=== PATIENT | female | born 1960 | race Two or more races ===

== ENCOUNTER 2021-02-19 10:40 | Emergency (ER) | payer OTHER ==
[~2021-02-19] VITALS: Ht 152.4 cm; Wt 81.6 kg
[2021-02-19 11:51] VITALS: BP 171/68
[2021-02-19] MEDS ORDERED: HYDROcodone-ACET 5/325MG TAB PO ONE (12:00)
[2021-02-19] MEDS ORDERED: ONDANSETRON ODT 4 MG TAB PO ONE (12:00)
== END 2021-02-19 14:04 | disposition home or self-care (01) ==
LOC: ER 10:40
DX: S39.012A Strain of muscle, fascia and tendon of lower back, initial encounter (principal); M54.41 Lumbago with sciatica, right side; I10 Essential (primary) hypertension; E11.9 Type 2 diabetes mellitus without complications; Z90.49 Acquired absence of other specified parts of digestive tract; X58.XXXA Exposure to other specified factors, initial encounter; Y93.89 Activity, other specified; Y92.89 Other specified places as the place of occurrence of the external cause; Y99.8 Other external cause status
CPT/HCPCS: 72100; 93005; 99283; Q0162

== ENCOUNTER → 2021-08-23 | Emergency (ER) | payer OTHER ==
[~2021-08-23] VITALS: Ht 154.9 cm; Wt 81.6 kg
[~2021-08-23] MED LIST: MEPERIDINE HCL (50 MG/ML) 1 ML VIAL IM ONE; PROMETHAZINE HCL 25 MG/ML 1ML IM ONE
[2021-08-23 07:59] VITALS: BP 174/81
== END | disposition left against medical advice (07) ==
LOC: ER 04:19
DX: S39.012A Strain of muscle, fascia and tendon of lower back, initial encounter (principal); M54.42 Lumbago with sciatica, left side; M54.41 Lumbago with sciatica, right side; G89.29 Other chronic pain; X58.XXXA Exposure to other specified factors, initial encounter; Y93.89 Activity, other specified; Y92.89 Other specified places as the place of occurrence of the external cause; Y99.8 Other external cause status
CPT/HCPCS: 72131; 96372; 99284; J2175; J2550

== ENCOUNTER 2024-07-15 21:09 | Emergency (ER) | payer OTHER ==
[~2024-07-15] VITALS: Ht 154.9 cm; Wt 72.8 kg
[2024-07-15 22:07] VITALS: TEMP 98.5
[2024-07-15 22:11] LABS: Urine Bacteria FEW /hpf (None Seen); Urine Blood Negative /uL (Negative); Urine Clarity Clear (Clear); Urine Color Light-Yellow (Yellow); Urine Protein, UAD Negative (Negative); Urine Specific Gravity 1.029 (1.001-1.035); Urine Squamous Epithelial Cell MOD /hpf (<5); Urine Urobilinogen Normal (Negative); Urine WBC 12 /HPF (0-5)
[2024-07-15 22:19] LABS: Basophils # (auto) 0 10 ^3/uL (0-0.2); Basophils % (auto) 0.4 % (0.0-2.0); Eosinophils # (auto) 0 10 ^3/uL (0-0.8); Eosinophils % (auto) 0.5 % (0.0-7.0); Hematocrit 43.6 % (36.0-46.0); Hemoglobin 14.9 g/dL (12.2-16.2); Lymphocytes # (auto) 3.3 10 ^3/uL (0.4-5.4); Lymphocytes % (auto) 39.1 % (10.0-50.0); Mean Corpuscular Hemoglobin 30.4 pg (28.0-32.0); Mean Corpuscular Hgb Conc. 34.1 g/dL (32.0-36.0); Mean Corpuscular Volume 89.1 fL (80.0-100.0); Monocytes # (auto) 0.5 10 ^3/uL (0-1.3); Monocytes % (auto) 6.1 % (0.0-12.0); Neutrophils # (auto) 4.5 10 ^3/uL (1.6-8.6); Neutrophils % (auto) 53.9 % (37.0-80.0); Platelet Count (auto) 272 10^3/uL (140-450); Red Blood Cells 4.89 10^6/uL (4.0-5.20); Red Cell Distribution Width 12.6 % (11.8-14.3); White Blood Cell 8.4 10^3/uL (4.4-10.8)
[2024-07-15 22:39] LABS: Alanine Aminotransferase 10 U/L (7-40); Albumin 4.3 g/dL (3.2-4.8); Anion Gap 6 (5-15); BUN/Creatinine Ratio 32.9 (10.0-20.0); Calcium 9.7 mg/dL (8.7-10.4); Carbon Dioxide 30 mmol/L (20-31); Chloride 99 mmol/L (98-107); Lipase 41 U/L (12-53); Potassium 4.5 mmol/L (3.5-5.1); Total Protein 6.6 g/dL (5.7-8.2)
[2024-07-15 22:42] LABS: Alkaline Phosphatase 160 U/L (46-116); Aspartate Aminotransferase 9 U/L (13-40); Bilirubin, Total 0.3 mg/dL (0.2-1.0); Blood Urea Nitrogen 25 mg/dL (9-23); Glucose 348 mg/dL (74-106); Sodium 135 mmol/L (136-145)
--- NOTE | 2024-07-15 22:59 | DVH ---
CHEST RADIOGRAPH Indication: back pain radiating towards the chest Technique: Single frontal view of the chest was obtained Comparison: None FINDINGS: Lines and Tubes: None Lungs: Clear Pleura: No effusion. No pneumothorax. Cardiomediastinal contours: Unremarkable Bones: Unremarkable IMPRESSION: Clear lungs.
[2024-07-15] MEDS: InsuLIN REG 1unit/0.01ml Soln (100units/ml) IV ONE (23:45)
[2024-07-16] MEDS: SODIUM CHLORIDE 0.9% 1,000 ML IV ONE ×2 (00:37→00:47)
[2024-07-16] MEDS ORDERED: NITR-87 PO (00:39)
[2024-07-16] MEDS ORDERED: ACET500T58 PO (00:39)
--- NOTE | 2024-07-16 00:39 | ED.PDOC ---
History of Present Illness HPI Comments This patient is a 63-year-old female who arrives the ED today for evaluation of upper back pain that radiates down through her latissimus region and towards her chest the past two days. Patient denies any traumatic events. Patient denies any history of cardiac concerns. Patient was hypertensive on arrival. Chief Complaint: Back Pain Time Seen by MD: 21:23 Primary Care Provider: ANA Radford Notes: Nurses Notes Allergies: Coded Allergies: NO KNOWN ALLERGIES (Unverified , 02/19/21) Information Source: Patient, Relative Mode of Arrival: Ambulatory Severity: Moderate Timing: Days Duration: Since onset Prehospital treatment: None Past Medical History PAST MEDICAL HISTORY: Anxiety, DM, Gallstones, HTN Surgical History: Cholecystectomy CONSTRUCTION CONSULTANT History: No Pertinent CONSTRUCTION CONSULTANT History Family History Family History: Reviewed,noncontributory to illness Social History Smoker: Non-Smoker Alcohol: Denies ETOH Use Drugs: Denies Drug Use Lives In: Home Constitutional: denies: chills, diaphoresis, fatigue, fever, malaise, sweats, weakness, others EENTM: denies: blurred vision, double vision, ear bleeding, ear discharge, ear drainage, ear pain, ear ringing, eye pain, eye redness, hearing loss, mouth pain, mouth swelling, nasal discharge, nose bleeding, nose congestion, nose pain, photophobia, tearing, throat pain, throat swelling, voice changes, others Respiratory: denies: cough, hemoptysis, orthopnea, SOB at rest, shortness of breath, SOB with excertion, stridor, wheezing, others Cardiovascular: reports: chest pain; denies: dizzy spells, diaphoresis, Dyspnea on exertion, edema, irregular heart beat, left arm pain, lightheadedness, palpitations, PND, syncope, others Gastrointestinal: denies: abdomen distended, abdominal pain, blood streaked bowels, constipated, diarrhea, dysphagia, difficulty swallowing, hematemesis, melena, nausea, poor appetite, poor fluid intake, rectal bleeding, rectal pain, vomiting, others Genitourinary: denies: abnormal vagina bleeding, burning, dyspareunia, dysuria, flank pain, frequency, hematuria, incontinence, pain, , vagina discharge, urgency, others Neurological: denies: dizziness, fainting, headache, left sided numbness, left sided weakness, numbness, paresthesia, pre-existing deficit, right sided numbness, right sided weakness, seizure, speech problems, tingling, tremors, weakness, others Musculoskeletal: denies: back pain, gout, joint pain, joint swelling, muscle pain, muscle stiffness, neck pain, others Integumetry: denies: bruises, change in color, change in hair/nails, dryness, laceration, lesions, lumps, rash, wounds, others Allergic/Immunocompromised: denies: Difficulty Healing, Frequent Infections, Hives, Itching, others Hematologic/Lymphatic: denies: anemia, blood clots, easy bleeding, easy bruising, swollen glands, others Endocrine: denies: excessive hunger, excessive sweating, excessive thirst, excessive urination, flushing, intolerance to cold, intolerance to heat, unexplained weight gain, unexplained weight loss, others Psychiatric: denies: anxiety, bipolar disorder, depression, hopeless, panic disorder, schizophrenia, sleepless, suicidal, others Physical Exam General Appearance: Moderate Distress ([id number] distress at time of evaluation.), Obese HEENT: Normal ENT Inspection, Pharynx Normal, TMs Normal Neck: Full Range of Motion, Non-Tender, Normal, Normal Inspection, Other ( Unremarkable posterior neck evaluation.) Respiratory: Chest Non-Tender, Lungs Clear, No Accessory Muscle Use, No Respiratory Distress, Normal Breath Sounds Cardiovascular: No Edema, No JVD, No Murmur, No Gallop, Normal Peripheral Pulses, Regular Rate/Rhythm Breast Exam: Deferred Gastrointestinal: No Organomegaly, Non Tender, No Pulsatile Mass, Normal Bowel Sounds, Soft Genitalia: Deferred Pelvic: Deferred Rectal: Deferred Extremities: No calf tenderness, Normal capillary refill, Normal inspection, Normal range of motion, Non-tender, No pedal edema Neurologic: Alert, No Motor Deficits, Normal Affect, Normal Mood, No Sensory Deficits Cerebellar Function: Normal Reflexes: Normal Skin: Dry, Normal Color, Warm Lymphatic: No Adenopathy Was a procedure done? Was a procedure done?: No Differential Dx Considerations may include: Pneumonia, intrapulmonary mass, sepsis, electrolyte abnormality, back pain X-Ray, Labs, Meds, VS Vital Signs Date Time Temp Pulse Resp B/P (MAP) Pulse Ox O2 Delivery O2 Flow Rate FiO2 07/15/24 22:07 98.5 77 18 154/98 (116) 98 98.5 07/15/24 21:50 71 Lab Test 07/15/24 23:01 07/15/24 22:06 07/15/24 21:57 Range/Units Troponin I High Sensitivity < 3 L < 3 L </=34 ng/L White Blood Count 8.4 4.4-10.8 10^3/uL Red Blood Count 4.89 4.0-5.20 10^6/uL Hemoglobin 14.9 12.2-16.2 g/dL Hematocrit 43.6 36.0-46.0 % Mean Corpuscular Volume 89.1 80.0-100.0 fL Mean Corpuscular Hemoglobin 30.4 28.0-32.0 pg Mean Corpuscular Hemoglobin Concent 34.1 32.0-36.0 g/dL Red Cell Distribution Width 12.6 11.8-14.3 % Platelet Count 272 140-450 10^3/uL Mean Platelet Volume 9.1 6.9-10.8 fL Neutrophils (%) (Auto) 53.9 37.0-80.0 % Lymphocytes (%) (Auto) 39.1 10.0-50.0 % Monocytes (%) (Auto) 6.1 0.0-12.0 % Eosinophils (%) (Auto) 0.5 0.0-7.0 % Basophils (%) (Auto) 0.4 0.0-2.0 % Neutrophils # (Auto) 4.5 1.6-8.6 10 ^3/uL Lymphocytes # (Auto) 3.3 0.4-5.4 10 ^3/uL Monocytes # (Auto) 0.5 0-1.3 10 ^3/uL Eosinophils # (Auto) 0 0-0.8 10 ^3/uL Basophils # (Auto) 0 0-0.2 10 ^3/uL Nucleated Red Blood Cells 0.0 % Sodium Level 135 L 136-145 mmol/L Potassium Level 4.5 3.5-5.1 mmol/L Chloride Level 99 98-107 mmol/L Carbon Dioxide Level 30 20-31 mmol/L Anion Gap 6 5-15 Blood Urea Nitrogen 25 H 9-23 mg/dL Creatinine 0.76 0.550-1.02 mg/dL Glomerular Filtration Rate Calc 87 >90 mL/min BUN/Creatinine Ratio 32.9 H 10.0-20.0 Serum Glucose 348 H 74-106 mg/dL Calcium Level 9.7 8.7-10.4 mg/dL Total Bilirubin 0.3 0.2-1.0 mg/dL Aspartate Amino Transferase (AST) 9 L 13-40 U/L Alanine Aminotransferase (ALT) 10 7-40 U/L Alkaline Phosphatase 160 H 46-116 U/L B-Type Natriuretic Peptide 17.45 0-100 pg/mL Total Protein 6.6 5.7-8.2 g/dL Albumin 4.3 3.2-4.8 g/dL Lipase 41 12-53 U/L Urine Color Light-yellow Yellow Urine Clarity Clear Clear Urine pH 6.0 5.0-9.0 Urine Specific [place] 1.029 1.001-1.035 Urine Protein Negative Negative Urine Ketones Trace Negative Urine Blood Negative Negative /uL Urine Nitrite Negative Negative Urine Bilirubin Negative Negative Urine Urobilinogen Normal Negative mg/dL Urine Leukocyte Esterase Negative Negative /uL Urine RBC 5 0 - 4 /hpf Urine Microscopic WBC 12 H 0-5 /HPF Urine Squamous Epithelial Cells Mod <5 /hpf Urine Bacteria Few H None Seen /hpf Urine Glucose 4+ H Normal mg/dL X-Ray, Labs, Meds, VS Comment All studies performed the ED were evaluated by me personally.Serum laboratories were relatively unremarkable other than significant for a hyperglycemic state due to the patient's poorly controlled diabetes. Urinalysis revealed a small urinary tract infection. Patient was provided with fluid and insulin prior to discharge. Chest x-ray was unremarkable for any intrapulmonary or musculoskeletal concerns. Advised patient utilize antibiotics as directed and additionally, patient should follow up with the primary care provider for discussions related to what appears to be poorly controlled diabetes. Time of 1ST Reevaluation: 00:36 Reevaluation 1ST: Improved Consultation: PCP Patient Education/Counseling: Diagnosis, Treatment Family Education/Counseling: Diagnosis, Treatment Departure 1 Departure Time of Disposition: 00:37 Impression: Primary Impression: Hyperglycemia due to diabetes mellitus Additional Impression: UTI (urinary tract infection) Disposition: 01 HOME / SELF CARE / HOMELESS Condition: Stable Additional Instructions: Advised patient utilize antibiotics as directed until completion as well as additional medication as needed for symptomatic relief. Patient should follow up with the primary care provider for discussions related to what appears to be poorly controlled diabetes myelitis. e-Prescriptions Acetaminophen (Acetaminophen) 500 Mg Tab 500 MG PO Q4HP PRN, #30 TAB Prov: CARLOS GARNER PAC 07/16/24 Nitrofurantoin Monohydrate Mac (Macrobid) 100 Mg Cap 100 MG PO BID for 5 Days, #10 CAP Prov: CARLOS GARNER PAC 07/16/24 Discharged With: Self, Friend Critical Care Note Critical Care Time?: No Stability Stability form required: No Heart Score Heart Score: Heart Score Response (Comments) Value History Slightly Suspicious 0 EKG Repolarization Disturb 1 Age 45-64 1 Risk Factors 1 or 2 risk factors 1 Troponin Normal limit 0 Total 3 CARLOS GARNER PAC July 16, 2024 00:39
[2024-07-16] MEDS: HYDROcodone-ACET 10/325MG TAB PO ONE (00:42)
[2024-07-16] MEDS: InsuLIN REG 1unit/0.01ml Soln (100units/ml) IV ONE (00:46)
[2024-07-16 01:00] VITALS: RESP 16; O2SAT 95
[2024-07-16] MEDS: KETOROLAC TROMETH 60MG/2ML VIAL IM ONE (01:00)
[2024-07-16] MEDS: NITROFURANTOIN 100 mg CAP PO ONE (01:17)
[2024-07-16 02:13] VITALS: PULSE 68; RESP 16; O2SAT 98
[2024-07-16] MEDS: cloNIDine HCL 0.1 MG TAB PO ONE (02:20)
[2024-07-16 03:22] VITALS: BP 177/74
--- NOTE | 2024-07-16 05:37 | ECG ---
[facility] Test Date: 2024-07-15 Test Time: 21:50:26 Pat Name: PRISCIAL SCHWARTZ Department: ER Room: Gender: F Stem Maker: MAGGIE : 1960 Requested By: CARLOS GARNER Order Number: [id number] Reading MD: Carlos Wright Measurements Intervals [place] Rate: 71 P: 56 UT: 152 QRS: 47 QRSD: 79 T: 61 QT: 366 QTc: 398 Interpretive Statements Sinus rhythm Probable left atrial enlargement Electronically Signed On 07-17-2024 21:01:21 PDT by Carlos Wright Please click the below link to view image of tracing.
== END 2024-07-16 03:27 | disposition home or self-care (01) ==
LOC: ER 21:09
DX: E11.65 Type 2 diabetes mellitus with hyperglycemia (principal); N39.0 Urinary tract infection, site not specified; I10 Essential (primary) hypertension; F41.9 Anxiety disorder, unspecified; Z90.49 Acquired absence of other specified parts of digestive tract
CPT/HCPCS: 36415; 71045; 80053; 81001; 82947; 83690; 83880; 84484; 85025; 93005; 96360; 96372; 99285; J1815; J1885; J7030; 82962